=== PATIENT | male | born 1990 | race Caucasian/White ===

== ENCOUNTER 2016-11-12 03:09 | Emergency (ER) | payer BC ==
[2016-11-12] MEDS ORDERED: Amoxicillin/Clavulanate K 875-125 MG Tab PO ONE (03:21)
--- NOTE | 2016-11-12 03:32 | EDM.PDOC ---
ED HPI GENERAL MEDICAL PROBLEM - General Chief Complaint: Bite:Animal, Insect Stated Complaint: BIT BY DOG Time Seen by Provider: 11/12/16 03:20 Source of Information: Reports: Patient, Police History Limitations: Reports: No Limitations - History of Present Illness INITIAL COMMENTS - FREE TEXT/NARRATIVE: 26 yo male was bitten in several places by a police dog tonight. States his tetanus is UTD and he has no allergies. Onset: Today Onset Date: 11/12/16 Onset Time: 02:20 Duration: Minutes: Location: Reports: Head, Neck, Back Quality: Reports: Burning Severity: Moderate Improves with: Reports: None Worsens with: Reports: None Context: Reports: Other (police sandy) Associated Symptoms: Reports: No Other Symptoms Treatments ANTISQUEAK APPLIER: Reports: Other (see below) (none) - Related Data Allergies Allergy/AdvReac Type Severity Reaction Status Date / Time No Known Allergies Allergy Verified 11/12/16 03:19 Home Meds: Home Meds Amoxicillin/Potassium Clav [Augmentin 875-125 Tablet] 1 each PO Q12H #5 tablet 11/12/16 [Rx] ED ROS GENERAL - Review of Systems Review Of Systems: See Below Constitutional: Reports: No Symptoms Musculoskeletal: Reports: No Symptoms Skin: Reports: Wound Neurological: Reports: No Symptoms ED EXAM, SKIN/RASH Exam: See Below Exam Limited By: No Limitations General Appearance: Alert, WD/WN, No Apparent Distress Extremities: Normal Inspection Neurological: Alert, Oriented, CN II-XII Intact, Normal Cognition, No Motor/ Sensory Deficits Psychiatric: Normal Affect, Normal Mood Skin: Warm, Dry, Normal Color, No Rash, Wound/Incision (Bite wounds to occiput of scalp, back of neck, and low back. None appear infected at this early point.) Location, Skin: Head, Neck, Back. No: Upper Extremity, Right, Upper Extremity, Left, Lower Extremity, Right, Lower Extremity, Left Characteristics: Linear, Other (puncture) Associated features: Tenderness. No: Warmth, Wwelling, Induration, Inflammation , Crusting, Weeping Lymphatic: No Adenopathy Course - Vital Signs Text/Narrative:: Augmentin 875 mg po - Orders/Labs/Meds Meds: Medications Discontinued Medications Generic Name Dose Route Start Last Admin Trade Name Freq PRN Reason Stop Dose Admin Amoxicillin/Clavulanate Potassium 1 tab 11/12/16 03:21 Augmentin 875 Mg/125 Mg PO 11/12/16 03:22 ONETIME ONE Departure - Departure Time of Disposition: 03:34 Disposition: Home, Self-Care 01 Condition: Good Clinical Impression: Dog bite of multiple sites of scalp and neck Qualifiers: Encounter type: initial encounter Qualified Code(s): S01.05XA - Open bite of scalp, initial encounter; S11.95XA - Open bite of unspecified part of neck, initial encounter; W54.0XXA - Bitten by dog, initial encounter Dog bite of buttock Qualifiers: Encounter type: initial encounter Laterality: unspecified laterality Qualified Code(s): S31.805A - Open bite of unspecified buttock, initial encounter; W54.0XXA - Bitten by dog, initial encounter - Discharge Information Prescriptions: Amoxicillin/Potassium Clav [Augmentin 875-125 Tablet] 1 each PO Q12H #5 tablet Referrals: PCP,None [Primary Care Provider] - Care Plan Goals: Take Augmentin every 12 hrs with food until gone. Clean wounds in shower with soap and water twice daily. Once dry, apply Bacitracin ointment and a new dressing if needed. Wound check in a clinic of choice on morning.
== END 2016-11-12 03:32 | disposition home or self-care (01) ==
LOC: FB.ED 03:09
DX: S01.05XA Open bite of scalp, initial encounter (principal); S11.95XA Open bite of unspecified part of neck, initial encounter; S31.815A Open bite of right buttock, initial encounter; W54.0XXA Bitten by dog, initial encounter
CPT/HCPCS: 12001; 99283; A9270